=== PATIENT | female | born 1965 | race African-American/Black ===

== ENCOUNTER 2017-05-17 01:50 | Inpatient (IN) | payer OTHER ==
[~2017-05-17] VITALS: Ht 165.1 cm; Wt 66.2 kg
[2017-05-17] VITALS (8 sets, daily range): BP systolic 150–192; BP diastolic 62–103
--- NOTE | ~2017-05-17 | HC ---
[facility] [place] [address] CONSULTATION Name: OMAYRA BUENO Room #: 203-[facility] M.R.#: [id number] Admission: 05/17/17 Attend Phys: Kai Mccarthy MD Discharge: Date of : 61 Report #: [id number] THIS REPORT FOR: //name// CC: Janice Young [facility] physician/PCP Zuhair Allan DATE OF SERVICE: 05/17/2017 CARDIOLOGY CONSULTATION DATE OF SERVICE: 05/17/2017 INDICATION: Chest pains. HISTORY OF PRESENT ILLNESS: This is a 52-year-old female presenting with chest discomfort. She reports a sharp pain across the chest area, comes and goes. It is reproducible with deep inspiration or palpation over the area. The patient has a history of end-stage renal disease, on dialysis 3 times a week. She has a history of noncompliance with medications. The patient was found to have urine tox screen positive for cocaine and opiates. The patient denies any history of fever, chills, nausea or diarrhea. PAST MEDICAL HISTORY: End-stage renal disease on hemodialysis, diabetes mellitus, asthma, hypertension, history of noncompliance with medications. ALLERGIES: None. MEDICATIONS: At home include Flexeril, [place], ibuprofen, insulin. SOCIAL HISTORY: Smokes half a pack of cigarettes per day. Positive drug use. FAMILY HISTORY: Negative for premature CAD. REVIEW OF SYSTEMS: A full 10-point review of systems performed. Only the pertinent positives and negatives are described in the HPI. PHYSICAL EXAMINATION: VITAL SIGNS: Blood pressure is 160/80, heart rate is 75 beats per minute. GENERAL APPEARANCE: A well-developed, well-nourished female in no acute respiratory distress. HEAD AND EYES: Normocephalic. Sclerae are anicteric. ENT: Oral mucosa moist. NECK: Supple, no JVD. LUNGS: Clear to auscultation. No wheezing. CARDIAC: Regular rate and rhythm, S1, S2 positive. [facility] [address] [place] [address] CONSULTATION Name: OMAYRA BUENO Room #: [facility] M.R.#: [id number] Admission: 05/17/17 Attend Phys: Kai Mccarthy MD Discharge: Date of : 61 Report #: [id number] ABDOMEN: Soft. EXTREMITIES: No cyanosis, no edema. ECG reveals sinus rhythm, nonspecific IVCD, left axis deviation. LABORATORY VALUES: Troponin level of 0.06 and 0.07, sodium is 134, creatinine is 11.2, white count is 8.1. IMPRESSION AND PLAN: 1. Chest pain, atypical, the symptoms are reproducible with palpation over chest area or deep inspiration. The troponin levels are negative. I do not believe that this is an ischemic event. However, she does have significant CAD risk factors and should undergo an ischemic evaluation, which can be down as an outpatient. 2. End-stage renal disease, continue with dialysis. 3. Hypertension, resume cardiac meds, as per renal. 4. Tobacco use, complete smoking cessation is recommended. 5. Drug use, observe for withdrawal. 6. Diabetes mellitus, continue with medications. Thank you for allowing me to participate in the care of your patient. <ELECTRONICALLY SIGNED> By: Don Andrews MD 05/18/17 0830 1032 1233 Don Andrews MD /nt
--- NOTE | ~2017-05-17 | EKG ---
[place] [address] [facility] [place] [address] ELECTROCARDIOGRAM REPORT Name: OMAYRA BUENO Room #: 203-P [facility] M.R.#: [id number] Admission: 05/17/17 Attend Phys: Zuhair Allan DO Discharge: Date of : 61 Report #: [id number] THIS REPORT FOR: //name// [facility] ED Test Date: 2017-05-17 Test Time: 01:54:59 Pat Name: OMAYRA BUENO Department: Room: [facility] Gender: F Senior Pastor: NATE : 1965 Requested By: Td Lazo Order Number: [id number] MD: Don Andrews Measurements Intervals [place] Rate: 90 P: 79 [place]: 186 QRS: -68 QRSD: 122 T: 77 QT: 434 QTc: 531 Interpretive Statements Sinus rhythm Nonspecific IVCD with LAD No previous ECG available for comparison Electronically Signed On 05-17-2017 10:43:06 CDT by Don Andrews [email or web address] <ELECTRONICALLY SIGNED> By: Don Andrews MD 05/17/17 1043 0154 0154 MD ANUJ Feliciano
[~2017-05-17 01:50] MED LIST: CYCLOBENZAPRINE5 MG PO; IBUPROFEN 800800 MG PO; LANTUS SOL100 UNIT/1 SQ; NORCO 5-325 TA1 EACH PO; NOVOLOG100 UNIT/1 SUBQ
[2017-05-17 02:48] LABS: ABSOLUTE NEUTROPHILS 6.1 thou/uL (1.4-8.2); BASOPHILS 0.9 % (0.0-2.0); EOSINOPHILS 0.6 % (0.0-3.0); HEMATOCRIT 25.5 % (37.0-47.0); HEMOGLOBIN 8.6 gm/dL (12.0-15.0); LYMPHOCYTES 16.9 % (24.0-44.0); MCHC 33.8 g/dL (28.0-37.0); MCV 91.6 fL (80.0-100.0); MONOCYTES 5.6 % (1.0-8.0); PLATELET COUNT 113 thou/uL (150-400); RBC 2.79 mil/uL (4.20-5.00); RDW 19.7 % (10.5-14.5); WBC 8.1 thou/uL (4.0-11.0)
[2017-05-17 02:53] LABS: MANUAL DIFF NO
[2017-05-17 02:54] LABS: AMP/METHAMP Negative (Negative); BARBITURATES Negative (Negative); BENZODIAZEPINES Negative (Negative); COCAINE POSITIVE (Negative); METHADONE Negative (Negative); OPIATES POSITIVE (Negative); PCP Negative (Negative); THC Negative (Negative)
[2017-05-17 02:58] LABS: CALCIUM 7.6 mg/dL (8.5-10.1); CREATININE 11.2 mg/dL (0.6-1.0)
[2017-05-17 03:00] LABS: APTT 30.4 Seconds (24.5-32.8); INR 1.2; PROTIME 12.3 Seconds (9.3-11.4)
[2017-05-17 03:09] LABS: ALBUMIN 3.6 g/dL (3.4-5.0); MAGNESIUM 1.9 mg/dL (1.8-2.4); TOTAL PROTEIN 7.5 g/dL (6.4-8.2); TROPONIN-I 0.06 ng/mL (<0.04-0.07)
[2017-05-18 03:44] LABS: ABSOLUTE NEUTROPHILS 5.3 thou/uL (1.4-8.2); EOSINOPHILS 3.3 % (0.0-3.0); HEMATOCRIT 26.9 % (37.0-47.0); HEMOGLOBIN 9.2 gm/dL (12.0-15.0); MCH 30.5 pg (26.0-34.0); MCHC 34.2 g/dL (28.0-37.0); MCV 89.2 fL (80.0-100.0); MONOCYTES 7.8 % (1.0-8.0); PLATELET COUNT 159 thou/uL (150-400); POLYS 65.9 % (36.0-66.0); RBC 3.01 mil/uL (4.20-5.00); RDW 19.6 % (10.5-14.5); WBC 8.1 thou/uL (4.0-11.0)
[2017-05-18 03:51] LABS: CALCIUM 7.6 mg/dL (8.5-10.1); MAGNESIUM 1.8 mg/dL (1.8-2.4); POTASSIUM 4.2 mmol/L (3.5-5.1)
[2017-05-18 03:52] LABS: MANUAL DIFF NO
[2017-05-18 03:57] LABS: CREATININE 6.6 mg/dL (0.6-1.0)
[2017-05-18 04:20] VITALS: BP 185/107
[2017-05-18 15:10] LABS: HEP B SURFACE Ab(ANTI-HBS Reactive (())
[2017-05-18 17:06] VITALS: BP 176/93
[2017-05-18 19:09] VITALS: BP 171/92
[2017-05-18 23:42] VITALS: BP 158/70
[2017-05-19 03:36] VITALS: BP 170/66
== END 2017-05-19 07:30 | disposition left against medical advice (07) | DRG 313 ==
LOC: ER 01:50 → EROBS 03:21 → 2N 03:21
PROVIDERS: Emergency Medicine; Internal Medicine
PROC: 5A1D70Z Performance of Urinary Filtration, Intermittent, Less than 6 Hours Per Day (ICD-10-PCS; principal; 2017-05-17)
PROC: 5A1D70Z Performance of Urinary Filtration, Intermittent, Less than 6 Hours Per Day (ICD-10-PCS; 2017-05-18)
DX: R07.89 Other chest pain (principal); N18.6 End stage renal disease; I12.0 Hypertensive chronic kidney disease with stage 5 chronic kidney disease or end stage renal disease; F17.210 Nicotine dependence, cigarettes, uncomplicated; F14.10 Cocaine abuse, uncomplicated; E11.22 Type 2 diabetes mellitus with diabetic chronic kidney disease; J45.909 Unspecified asthma, uncomplicated; E87.5 Hyperkalemia; Z79.899 Other long term (current) drug therapy; Z79.4 Long term (current) use of insulin; Z99.2 Dependence on renal dialysis; Z71.6 Tobacco abuse counseling; Z91.15 Patient's noncompliance with renal dialysis
CPT/HCPCS: 10081; 32100

== ENCOUNTER 2017-09-19 21:01 | Inpatient (IN) | payer OTHER ==
[~2017-09-19] VITALS: Ht 165.1 cm; Wt 61.2 kg
[2017-09-19] VITALS (7 sets, daily range): BP systolic 189–204; BP diastolic 79–93
--- NOTE | ~2017-09-19 | HC ---
[facility] [place] [address] CONSULTATION Name: OMAYRA BUENO Room #: 416-P [facility] IN M.R.#: [id number] Admission: 09/19/17 Attend Phys: Janice Young MD Discharge: 09/24/17 Date of : 61 Report #: [id number] THIS REPORT FOR: //name// CC: FAM unknown Harsh Morales DATE OF SERVICE: 09/20/2017 REASON FOR CONSULTATION: End-stage renal disease requiring hemodialysis. HISTORY OF PRESENT ILLNESS: This is a 52-year-old female who came into the Emergency Room yesterday. She had mental status changes, possibly had a seizure. She has a history of end-stage renal disease and is chronically on dialysis. She has a longstanding diabetes and hypertension. On presentation, she was very hypertensive. She was started on some Cardene for that. She had a CT scan of the head, which showed no acute anatomic changes. She has not had any further seizures. She is seen at this time in the ICU. She is writhing about complaining of pain, complaining of loss of vision, complaining of pleuritic discomfort and is rather restless. She is really not interested . She has a daughter here who states that she has been on dialysis a couple of years. Etiology of her end-stage renal disease is diabetes. She normally dialyzes at the [facility] on . She normally dialyzes on a Thursday, Thursday, Thursday basis. The daughter states that the patient frequently signs off early getting only a couple of hours of dialysis at a time. She dialyzes using a left upper arm AV graft. PAST MEDICAL HISTORY: Longstanding diabetes, also a history of longstanding hypertension. I have spoken with Dr. Young who knows her from previously and states that she does have a history of substance abuse disorder. She has anemia of end-stage renal disease. She is sketchy on details concerning any other sequelae of her diabetes mellitus. MEDICATIONS ON ADMISSION: Undetermined at this time. ALLERGIES: LISTED TO AMOXICILLIN through the Emergency Room. FAMILY HISTORY: Noncontributory. SOCIAL HISTORY: The patient is single, lives in [place], [place]. She is not employed. REVIEW OF SYSTEMS: Again, complains of pain everywhere and really she complains of pain almost wherever I touch her off during exam. She complains of headache, pleuritic chest pain, shortness of breath, nausea. She thinks she lost her vision. She is unaware of fevers, chills or sweats. The majority of her symptoms and history are deemed to be fairly unreliable. [facility] [address] [place] [address] CONSULTATION Name: OMAYRA BUENO Room #: 416-P [facility] IN M.R.#: [id number] Admission: 09/19/17 Attend Phys: Janice Young MD Discharge: 09/24/17 Date of : 61 Report #: [id number] PHYSICAL EXAMINATION: GENERAL: Thin, 52-year-old female, awake and responsive, very anxious. VITAL SIGNS: Blood pressure 160/72, heart rate 79, temperature 98.7, respiratory rate 16, oxygen saturation 99%. HEENT: Shows pupils are 2 mm and reactive. Sclerae are nonicteric. Oral mucosa is dry. NECK: Veins are slightly distended on the left. No adenopathy. Neck is fully supple. CHEST: Clear in all lung [place]. HEART: Has a regular rate and rhythm, no gallop. ABDOMEN: Has a few bowel sounds present. It is soft, nontender at this time. EXTREMITIES: Show no peripheral edema. She has a left upper arm AV graft in place. By palpation, I sensed it is an Artegraft. It has excellent flow. LABORATORY DATA: Sodium 140, potassium 4.7, chloride 98, bicarbonate 27, BUN 57, creatinine 9.7, glucose 120, calcium 8.7, magnesium 2.2. Total bilirubin 1.5, total protein 8.6, albumin 4.0. Troponin 0.04. Undetectable acetaminophen and alcohol. Drug screen pending. White count 6.9, hemoglobin 12.1, hematocrit 36.8, platelets 168,000. Blood gas; pH 7.37, pCO2 of 36.8, pO2 of 246.4. ASSESSMENT: 1. End-stage renal disease. It appears that she did dialyze a couple of days ago on 09/18/2017. She will need dialysis tomorrow, which is her usual dialysis day. I will put in orders for that and we will dialyze her tomorrow. We will put her on a 3 potassium dialysate, but that may need to be altered if potassium goes up overnight. Difficult to know really what her target weight is. We will aim for 1.5 liters of ultrafiltration to help her blood pressure improve. 2. Hypertension, severe. She has been put on some amlodipine. She had some Cardene overnight. Again, we will work for volume removal tomorrow. 3. Longstanding diabetes mellitus. 4. Potential substance abuse. Screen is pending. PLAN: 1. I have written orders for dialysis tomorrow. 2. We will follow along with care of this patient. <ELECTRONICALLY SIGNED> By: Jose Sutherland MD 09/21/17 0722 1140 1726 Jose Sutherland MD /beth
--- NOTE | ~2017-09-19 | EKG ---
[place] [address] [facility] [place] [address] ELECTROCARDIOGRAM REPORT Name: OMAYRA BUENO Room #: 416-P [facility] IN M.R.#: [id number] Admission: 09/19/17 Attend Phys: Janice Young MD Discharge: 09/24/17 Date of : 61 Report #: [id number] THIS REPORT FOR: //name// [facility] ED Test Date: 2017-09-19 Test Time: 21:11:07 Pat Name: OMAYRA BUENO Department: Room: [facility] Gender: F Astronomy Teacher: ELISEO : 1965 Requested By: Td Lazo Order Number: [id number] MD: Jerry Vaca Measurements Intervals [place] Rate: 106 P: 69 [place]: 167 QRS: -17 QRSD: 98 T: 70 QT: 373 QTc: 496 Interpretive Statements Sinus tachycardia Right atrial enlargement Nonspecific ST and T wave abnormality Borderline prolonged QT interval Compared to ECG 06/30/2011 14:29:[address] and T wave abnormality is now present heart rate has increased Electronically Signed On 09-21-2017 7:31:15 DIRECTOR OF AUDIOLOGY by Jerry Vaca [email or web address] <ELECTRONICALLY SIGNED> By: Jerry Vaca MD, [facility] 09/21/17 0731 10 10 Jerry Vaca MD, [facility] /EPI
--- NOTE | ~2017-09-19 | EEG ---
[facility] [place] [address] ELECTROENCEPHALOGRAM Name: OMAYRA BUENO Room #: 416-P [facility] IN M.R.#: [id number] Admission: 09/19/17 Attend Phys: Janice Young MD Discharge: 09/24/17 Date of : 61 Report #: [id number] THIS REPORT FOR: //name// CC: Janice Young [facility] unknown DATE OF SERVICE: 09/21/2017 This patient presented with an episode of seizure. She did not cooperate with the EEG. She continued to move. Background activity in this patient's EEG appears to be about 9 Hz and 30 microvolt. The patient became drowsy that is associated with bilateral slowing and vertex sharp waves. Photic stimulation is unremarkable. IMPRESSION: A lot of artifact is present in this patient's electroencephalogram making the interpretation of this electroencephalogram very difficult. There is some intermixed theta range slowing, which is a nonspecific finding, which can occur with encephalopathy, effect of psychotropic medication and dementia. No active epileptiform activity was noticed during this record. Thank you very much for this referral. <ELECTRONICALLY SIGNED> By: Larry Brunner MD 10/01/17 1146 1708 1718 Larry Brunner MD /nt
[2017-09-19 21:22] LABS: ABSOLUTE NEUTROPHILS 5.5 thou/uL (1.4-8.2); BASOPHILS 0.9 % (0.0-2.0); EOSINOPHILS 1.3 % (0.0-3.0); HEMATOCRIT 42.2 % (37.0-47.0); HEMOGLOBIN 13.8 gm/dL (12.0-15.0); LYMPHOCYTES 25.4 % (24.0-44.0); MCHC 32.6 g/dL (28.0-37.0); MCV 91.8 fL (80.0-100.0); MONOCYTES 11.4 % (1.0-8.0); PLATELET COUNT 174 thou/uL (150-400); RBC 4.59 mil/uL (4.20-5.00); RDW 23.1 % (10.5-14.5); WBC 9.1 thou/uL (4.0-11.0)
[2017-09-19 21:33] LABS: ANION GAP 23 mmol/L (7-16); BUN 50 mg/dL (7-18); CALCIUM 9.7 mg/dL (8.5-10.1); CHLORIDE 96 mmol/L (98-107); CO2 23 mmol/L (21-32); CREATININE 9.5 mg/dL (0.6-1.0); GLUCOSE 165 mg/dL (74-106); POTASSIUM 4.6 mmol/L (3.5-5.1); SODIUM 142 mmol/L (136-145)
[2017-09-19 21:41] LABS: MAGNESIUM 2.2 mg/dL (1.8-2.4); SALICYLATE 2.8 mg/dL (2.8-20.0); SGOT 42 U/L (15-37); SGPT 27 U/L (30-65); TOTAL BILIRUBIN 1.5 mg/dL (<0.1-1.0); TOTAL PROTEIN 8.6 g/dL (6.4-8.2); TROPONIN-I < 0.04 ng/mL (<0.06)
[2017-09-19 21:48] LABS: BE(vivo) -4.2 mmol/L (-2 to +3); HCO3 20.6 mmol/L (22.0-26.0); PCO2 36.8 mmHg (35.0-45.0); PO2 246.4 mmHg (80.0-100.0); pH 7.366 (7.360-7.450); sO2 99.5 % (92.0-98.0)
[2017-09-19 21:53] LABS: ANISOCYTOSIS 3+; LARGE PLATELETS OCCASIONAL; POLYCHROMASIA 1+
[2017-09-20] VITALS (27 sets, daily range): BP systolic 143–187; BP diastolic 58–79
[2017-09-20 05:42] LABS: HEMATOCRIT 36.8 % (37.0-47.0); HEMOGLOBIN 12.1 gm/dL (12.0-15.0); MCH 29.1 pg (26.0-34.0); MCHC 32.8 g/dL (28.0-37.0); MCV 88.8 fL (80.0-100.0); RBC 4.15 mil/uL (4.20-5.00); WBC 6.9 thou/uL (4.0-11.0)
[2017-09-20 05:59] LABS: CALCIUM 8.7 mg/dL (8.5-10.1); CREATININE 9.7 mg/dL (0.6-1.0); POTASSIUM 4.7 mmol/L (3.5-5.1); TROPONIN-I 0.04 ng/mL (<0.06)
[2017-09-21 10:06] LABS: HEMATOCRIT 32.5 % (37.0-47.0); HEMOGLOBIN 10.8 gm/dL (12.0-15.0); MCHC 33.3 g/dL (28.0-37.0); MCV 90.1 fL (80.0-100.0); RBC 3.61 mil/uL (4.20-5.00); RDW 22.9 % (10.5-14.5)
[2017-09-21 10:20] LABS: CALCIUM 8.3 mg/dL (8.5-10.1); CREATININE 6.1 mg/dL (0.6-1.0); POTASSIUM 3.9 mmol/L (3.5-5.1)
[2017-09-21 16:31] VITALS: BP 195/90
[2017-09-21 19:51] LABS: TSH 3.241 uIU/mL (0.358-3.740)
[2017-09-21 20:00] VITALS: BP 152/70
[2017-09-22 04:00] VITALS: BP 157/88
[2017-09-22 08:01] VITALS: BP 221/125
[2017-09-22 08:51] VITALS: BP 169/74
[2017-09-22 10:08] LABS: HEPATITIS B SURFACE AG Negative (Negative)
[2017-09-22 15:10] VITALS: BP 185/91
[2017-09-22 20:00] VITALS: BP 180/82
[2017-09-23 03:54] VITALS: BP 166/81
[2017-09-23 08:46] VITALS: BP 201/103
[2017-09-23 16:10] VITALS: BP 176/69
[2017-09-23 20:00] VITALS: BP 199/74
[2017-09-23 23:53] VITALS: BP 187/78
[2017-09-24 04:00] VITALS: BP 193/99
[2017-09-24 09:26] VITALS: BP 195/95
[2017-09-24] MEDS ORDERED: KEPPRA 500 MG500 M1 PO (12:45)
[2017-09-24] MEDS ORDERED: HYDRALAZINE 5050 MG PO (12:45)
[2017-09-24] MEDS ORDERED: NORVASC10 MG PO (12:45)
[2017-09-24] MEDS ORDERED: ATENOLOL 50MG T50 M1 PO (12:45)
[2017-09-24] MEDS ORDERED: ACETAMINOPHEN325 M1 PO (12:45)
[2017-09-24 13:53] VITALS: BP 195/95
== END 2017-09-24 16:25 | disposition home or self-care (01) | DRG 100 ==
LOC: 4N → ER 21:01 → EDBD 22:22 → 4N 22:22 → ICU 22:22 → 4N 22:22 → EROBS 22:22 → ICU 23:09 → 4N 09-20 10:38 → ICU 09-21 05:25 → 4N 09-21 05:25 → ENTRNSPT 09-24 16:24 → 4N 09-24 16:25 → EDBD 09-24 16:25
PROVIDERS: Emergency Medicine; Internal Medicine Nephrology; Nurse Practitioner; Psychiatry & Neurology Neuromuscular Medicine
PROC: 5A1D70Z Performance of Urinary Filtration, Intermittent, Less than 6 Hours Per Day (ICD-10-PCS; principal; 2017-09-21)
PROC: 5A1D70Z Performance of Urinary Filtration, Intermittent, Less than 6 Hours Per Day (ICD-10-PCS; 2017-09-23)
DX: G40.409 Other generalized epilepsy and epileptic syndromes, not intractable, without status epilepticus (principal); N18.6 End stage renal disease; G92 Toxic encephalopathy; I10 Essential (primary) hypertension; E11.22 Type 2 diabetes mellitus with diabetic chronic kidney disease; F15.10 Other stimulant abuse, uncomplicated; F17.210 Nicotine dependence, cigarettes, uncomplicated; G89.29 Other chronic pain; I16.0 Hypertensive urgency; Z91.19 Patient's noncompliance with other medical treatment and regimen; Z88.1 Allergy status to other antibiotic agents; Z99.2 Dependence on renal dialysis; Z88.0 Allergy status to penicillin; Z28.21 Immunization not carried out because of patient refusal
CPT/HCPCS: 10078; 10790; 32100

== ENCOUNTER 2017-09-24 22:40 | Emergency (ER) | payer OTHER ==
[~2017-09-24] VITALS: Ht 165.1 cm; Wt 47.2 kg
--- NOTE | ~2017-09-24 | EKG ---
[place] [address] [place] [address] ELECTROCARDIOGRAM REPORT Name: OMAYRA BUENO [id number] Admission: 09/24/17 Attend Phys: Discharge: 09/25/17 Date of : 61 Report #: [id number] THIS REPORT FOR: //name// [facility] ED Test Date: 2017-09-24 Test Time: 22:52:05 Pat Name: OMAYRA BUENO Department: Room: Gender: F Horse Race Timer: YURIY : 1965 Requested By: Arcelia Smith Order Number: [id number] MD: Jerry Vaca Measurements Intervals [place] Rate: 69 P: 79 [place]: 165 QRS: 4 QRSD: 95 T: 99 QT: 451 QTc: 484 Interpretive Statements Sinus rhythm LAE, consider biatrial enlargement Low voltage, extremity leads Probable anteroseptal infarct, old Nonspecific ST and T wave abnormality Compared to ECG 09/19/2017 21:11:07 Sinus tachycardia no longer present Electronically Signed On 09-25-2017 7:49:54 DATA EXAMINATION CLERK by Jerry Vaca [email or web address] <ELECTRONICALLY SIGNED> By: Jerry Vaca MD, [facility] 09/25/17 0749 2252 2252 Jerry Vaca MD, [facility] /EPI
[~2017-09-24 22:40] MED LIST changes: +ACETAMINOPHEN325 M1 PO; +ATENOLOL 50MG T50 M1 PO; +HYDRALAZINE 5050 MG PO; +KEPPRA 500 MG500 M1 PO; +NORVASC10 MG PO
[2017-09-24 23:02] LABS: ABSOLUTE NEUTROPHILS 4.5 thou/uL (1.4-8.2); EOSINOPHILS 3.4 % (0.0-3.0); HEMATOCRIT 35.3 % (37.0-47.0); HEMOGLOBIN 11.5 gm/dL (12.0-15.0); LYMPHOCYTES 19.9 % (24.0-44.0); MCH 29.7 pg (26.0-34.0); MCHC 32.6 g/dL (28.0-37.0); MCV 91.1 fL (80.0-100.0); MONOCYTES 6.1 % (1.0-8.0); PLATELET COUNT 119 thou/uL (150-400); POLYS 69.6 % (36.0-66.0); RBC 3.87 mil/uL (4.20-5.00); RDW 23.8 % (10.5-14.5); WBC 6.5 thou/uL (4.0-11.0)
[2017-09-24 23:07] LABS: ANION GAP 10 mmol/L (7-16); BUN 29 mg/dL (7-18); CALCIUM 8.7 mg/dL (8.5-10.1); CHLORIDE 100 mmol/L (98-107); CO2 28 mmol/L (21-32); CREATININE 7.1 mg/dL (0.6-1.0); GLUCOSE 127 mg/dL (74-106); POTASSIUM 4.1 mmol/L (3.5-5.1); SODIUM 138 mmol/L (136-145)
[2017-09-24 23:17] LABS: TROPONIN-I < 0.04 ng/mL (<0.06)
[2017-09-24 23:30] LABS: ANISOCYTOSIS 3+; POLYCHROMASIA 2+
[2017-09-24 23:31] LABS: SCHISTOCYTES FEW
[2017-09-25 00:10] VITALS: BP 175/84
== END 2017-09-25 00:22 | disposition home or self-care (01) ==
LOC: ER → EDBD 22:40 → ER 22:40
PROVIDERS: Emergency Medicine
DX: R07.9 Chest pain, unspecified (principal); I16.0 Hypertensive urgency; I12.0 Hypertensive chronic kidney disease with stage 5 chronic kidney disease or end stage renal disease; N18.6 End stage renal disease; Z99.2 Dependence on renal dialysis; F17.210 Nicotine dependence, cigarettes, uncomplicated

== ENCOUNTER 2017-09-26 06:38 | Emergency (ER) | payer OTHER ==
[~2017-09-26] VITALS: Ht 162.6 cm; Wt 68.0 kg
--- NOTE | ~2017-09-26 | EKG ---
[place] [address] [place] [address] ELECTROCARDIOGRAM REPORT Name: OMAYRA BUENO [id number] Admission: 09/26/17 Attend Phys: Discharge: 09/26/17 Date of : 61 Report #: [id number] THIS REPORT FOR: //name// [facility] ED Test Date: 2017-09-26 Test Time: 07:25:08 Pat Name: OMAYRA BUENO Department: Room: Gender: F Bi Developer: oly : 1965 Requested By: Vivien Forrest Order Number: [id number] MD: Jerry Vaca Measurements Intervals [place] Rate: 73 P: 85 [place]: 168 QRS: 23 QRSD: 101 T: 119 QT: 450 QTc: 496 Interpretive Statements Sinus rhythm Cannot rule out septal infarct, age indeterminate Nonspecific ST and T wave abnormality Compared to ECG 05/17/2017 01:54:59 Nonspecific change in the ST and T-wave segments Electronically Signed On 09-27-2017 15:27:15 OPERATIONS SECTION MANAGER by Jerry Vaca [email or web address] <ELECTRONICALLY SIGNED> By: Jerry Vaca MD, [facility] 09/27/17 1527 4 4 Jerry Vaca MD, [facility] /EPI
[2017-09-26 07:28] LABS: ABSOLUTE NEUTROPHILS 5.9 thou/uL (1.4-8.2); BASOPHILS 1.2 % (0.0-2.0); HEMATOCRIT 31.2 % (37.0-47.0); HEMOGLOBIN 10.2 gm/dL (12.0-15.0); LYMPHOCYTES 15.1 % (24.0-44.0); MCH 29.9 pg (26.0-34.0); MCHC 32.7 g/dL (28.0-37.0); MCV 91.3 fL (80.0-100.0); MONOCYTES 6.1 % (1.0-8.0); POLYS 75.6 % (36.0-66.0); RBC 3.41 mil/uL (4.20-5.00); RDW 23.6 % (10.5-14.5); WBC 7.8 thou/uL (4.0-11.0)
[2017-09-26 07:36] LABS: CALCIUM 8.4 mg/dL (8.5-10.1)
[2017-09-26 08:31] LABS: ANISOCYTOSIS 3+; POIKILOCYTOSIS 1+; POLYCHROMASIA 1+
[2017-09-26 08:32] LABS: HYPOCHROMASIA SLIGHT; PLATELET COUNT 94 thou/uL (150-400)
[2017-09-26 09:31] VITALS: BP 188/92
== END 2017-09-26 09:30 | disposition home or self-care (01) ==
LOC: ER 06:38
PROVIDERS: Emergency Medicine
DX: R06.00 Dyspnea, unspecified (principal); E11.22 Type 2 diabetes mellitus with diabetic chronic kidney disease; I12.0 Hypertensive chronic kidney disease with stage 5 chronic kidney disease or end stage renal disease; N18.6 End stage renal disease; F17.210 Nicotine dependence, cigarettes, uncomplicated; Z79.4 Long term (current) use of insulin; Z91.15 Patient's noncompliance with renal dialysis

== ENCOUNTER 2017-10-13 08:17 | Inpatient (IN) | payer OTHER ==
[~2017-10-13] VITALS: Ht 165.1 cm; Wt 97.5 kg
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
--- NOTE | ~2017-10-13 | HC ---
[facility] [place] [address] CONSULTATION Name: OMAYRA BUENO Room #: 443-P [facility] IN M.R.#: [id number] Admission: 10/13/17 Attend Phys: Harsh Nielsen MD Discharge: 10/16/17 Date of : 61 Report #: [id number] THIS REPORT FOR: //name// CC: KELLY physician/PCP Harsh Nielsen DATE OF SERVICE: 10/13/2017 HISTORY OF PRESENT ILLNESS: This is a 52-year-old female patient who is unable to provide any history. I had seen this patient in the past and I reviewed those notes. I talked to the nurses. I talked to the Emergency Room physicians and the admitting nurse practitioner. This patient was admitted with seizures. She was found unresponsive and possibly had a seizure. She was supposed to be on Keppra from last admission, but is not sure if she took it or she did not take it. Nurses tell me she was going to sign off AMA because she did not want to stay here, but she had another seizure and could not sign out AMA. She did receive some Ativan for the seizure and she received Keppra. She is on dialysis, so she got a single dose of Keppra, which should be adequate for her. REVIEW OF SYSTEMS: Very extensive from the record. She is unable to provide any history at all. She is a dialysis patient, but she is noncompliant, last time her liver was abnormal too. Her potassium is a very high, her creatinine is 13. That is her relevant 14-point review of system. She has very high history of medical noncompliance and she never provide any history and basically is very argumentative when I saw her last time and wants the narcotics. PAST MEDICAL HISTORY: Positive for seizure, but it is not sure whether they were seizure, but since she was predisposed to seizure, I had given her Keppra. FAMILY HISTORY: Unavailable, but last time she has told me there was no family member who has congenital epilepsy. SOCIAL HISTORY: She apparently has a boyfriend and who he is the one who found her, but I cannot reach him. She smokes. PHYSICAL EXAMINATION: Her examination is very limited. She is basically sedated and unresponsive at the moment. She is not actively seizing and she does not have any reflexes. Pupils are small. Cardiac examination is unremarkable. Respiratory examination appeared to be stable. Vital signs indicate a blood pressure of 176/82, respirations 16, and pulse is 68. LABS: Indicate a white count of 10.7 and potassium is high and last time, her bilirubin was also high and so was alkaline phosphatase . IMPRESSION: 1. Breakthrough seizure, most likely because of noncompliance. [facility] [address] [place] [address] CONSULTATION Name: OMAYRA BUENO Room #: 443-P [facility] IN M.R.#: [id number] Admission: 10/13/17 Attend Phys: Harsh Nielsen MD Discharge: 10/16/17 Date of : 61 Report #: [id number] 2. Virtually no history is available in this patient and because of that, we will go ahead and do a noncontrast CT of the head to make sure there is no pathology there. 3. We will do an EEG to look for any seizure activity. 4. She already got a dose of Keppra, which is appropriate for the dialysis patient, but we might resume a regular dose tomorrow depending upon when the dialysis is going to be and if the patient leaves AMA or not. Thank you very much for this referral. <ELECTRONICALLY SIGNED> By: Larry Brunner MD 10/17/17 1549 1815 2048 Larry Brunner MD /nt
--- NOTE | ~2017-10-13 | EEG ---
[facility] [place] [address] ELECTROENCEPHALOGRAM Name: OMAYRA BUENO Room #: 443-P [facility] IN M.R.#: [id number] Admission: 10/13/17 Attend Phys: Harsh Nielsen MD Discharge: 10/16/17 Date of : 61 Report #: [id number] THIS REPORT FOR: //name// CC: [facility] physician/PCP Harsh Nielsen This patient is being admitted with seizure. EEG was done by placing the electrodes by standard 10-20 system of electrode placement. Both referential and sequential montages were used for recording. Background activity in this patient's EEG is about 8 Hz and 30 microvolt. The patient appeared to be drowsy and that is associated with bilateral slowing and vertex sharp waves. Photic stimulation was unremarkable. Throughout the record, no active epileptiform activity was noticed. IMPRESSION: This patient's electroencephalogram is intermixed with theta range slowing on both sides. That is a nonspecific finding, which can occur with encephalopathy, effect of psychotropic medication, dementia, etc. No active epileptiform activity was noticed during this record. Thank you very much for this referral. <ELECTRONICALLY SIGNED> By: Larry Brunner MD 10/17/17 1552 1104 1137 Larry Brunner MD /nt
--- NOTE | ~2017-10-13 | EKG ---
[address] [place] [address] ELECTROCARDIOGRAM REPORT Name: OMAYRA BUENO Room #: 443-P [facility] IN M.R.#: [id number] Admission: 10/13/17 Attend Phys: Harsh Nielsen MD Discharge: Date of : 61 Report #: [id number] THIS REPORT FOR: //name// [facility] ED Test Date: 2017-10-13 Test Time: 11:43:56 Pat Name: OMAYRA BUENO Department: Room: 44 Gender: F Fence Installer Foreman: KKMICHI : 1965 Requested By: Vivien Forrest Order Number: [id number] MD: Jerry Vaca Measurements Intervals [place] Rate: 60 P: 51 [place]: 173 QRS: -14 QRSD: 75 T: 177 QT: 543 QTc: 543 Interpretive Statements Sinus rhythm Low voltage, extremity leads Anteroseptal infarct, old Nonspecific ST and T wave abnormality Prolonged QT interval Baseline wander in lead(s) III,aVL,V3 Compared to ECG 09/26/2017 07:25:08 No significant change was found Electronically Signed On 10-14-2017 7:55:25 CANVAS GOODS MAKER by Jerry Vaca [email or web address] <ELECTRONICALLY SIGNED> By: Jerry Vaca MD, FAC 10/14/17 0755 1143 1143 Jerry Vaca MD, FAC /EPI
[2017-10-13 08:19] VITALS: BP 159/73
[2017-10-13 08:52] LABS: ABSOLUTE NEUTROPHILS 8.3 thou/uL (1.4-8.2); BASOPHILS 0.6 % (0.0-2.0); EOSINOPHILS 0.7 % (0.0-3.0); HEMATOCRIT 35.2 % (37.0-47.0); HEMOGLOBIN 11.5 gm/dL (12.0-15.0); LYMPHOCYTES 15.6 % (24.0-44.0); MCH 30.4 pg (26.0-34.0); MCHC 32.8 g/dL (28.0-37.0); MCV 92.8 fL (80.0-100.0); MONOCYTES 5.9 % (1.0-8.0); PLATELET COUNT 130 thou/uL (150-400); POLYS 77.2 % (36.0-66.0); RBC 3.79 mil/uL (4.20-5.00); WBC 10.7 thou/uL (4.0-11.0)
[2017-10-13 09:00] LABS: CALCIUM 7.6 mg/dL (8.5-10.1)
[2017-10-13 09:02] LABS: POTASSIUM 6.1 mmol/L (3.5-5.1)
[2017-10-13 11:22] VITALS: BP 158/86
[2017-10-13 17:27] VITALS: BP 176/82
[2017-10-13 18:00] VITALS: BP 157/78
[2017-10-13 18:43] LABS: ALBUMIN 3.2 g/dL (3.4-5.0); CALCIUM 7.2 mg/dL (8.5-10.1); CREATININE 13.6 mg/dL (0.6-1.0); POTASSIUM 5.7 mmol/L (3.5-5.1); TOTAL BILIRUBIN 0.8 mg/dL (<0.1-1.0); TOTAL PROTEIN 7.1 g/dL (6.4-8.2)
[2017-10-13 19:43] VITALS: BP 161/74
[2017-10-14 01:10] LABS: GLYCOHEMOGLOBIN (HGB A1C) 4.9 % (4.8-5.6)
[2017-10-14 07:53] LABS: ABSOLUTE NEUTROPHILS 7.8 thou/uL (1.4-8.2); BASOPHILS 0.7 % (0.0-2.0); EOSINOPHILS 2.2 % (0.0-3.0); HEMATOCRIT 25.7 % (37.0-47.0); LYMPHOCYTES 8.3 % (24.0-44.0); MCH 30.1 pg (26.0-34.0); MCV 91.4 fL (80.0-100.0); MONOCYTES 7.2 % (1.0-8.0); PLATELET COUNT 130 thou/uL (150-400); POLYS 81.6 % (36.0-66.0); RBC 2.81 mil/uL (4.20-5.00); RDW 22.6 % (10.5-14.5); WBC 9.5 thou/uL (4.0-11.0)
[2017-10-14 07:54] LABS: HEMOGLOBIN 8.5 gm/dL (12.0-15.0)
[2017-10-14 08:00] VITALS: BP 160/68
[2017-10-14 08:09] LABS: ALBUMIN 2.8 g/dL (3.4-5.0); MAGNESIUM 1.9 mg/dL (1.8-2.4); PHOSPHORUS 7.3 mg/dL (2.5-4.9)
[2017-10-14 08:15] LABS: CALCIUM 5.9 mg/dL (8.5-10.1); CREATININE 10.6 mg/dL (0.6-1.0); POTASSIUM 4.6 mmol/L (3.5-5.1)
[2017-10-14 16:00] VITALS: BP 177/89
[2017-10-14 20:42] VITALS: BP 175/65
[2017-10-15 04:16] VITALS: BP 183/76
[2017-10-15 08:36] VITALS: BP 190/81
[2017-10-15 15:23] VITALS: BP 195/83
[2017-10-15 19:05] VITALS: BP 192/94
[2017-10-16 04:21] VITALS: BP 208/104
[2017-10-16] MEDS ORDERED: KEPPRA 500 MG500 M1 PO ×2 (11:42→13:05)
[2017-10-16] MEDS ORDERED: KEPPRA 500 MG500 MG PO ×2 (11:42→13:05)
[2017-10-16] MEDS ORDERED: COLACE100 MG PO (11:42)
[2017-10-16] MEDS ORDERED: HYDRALAZINE 2525 MG PO (12:14)
[2017-10-16 12:30] VITALS: BP 161/64
[2017-10-16 12:51] VITALS: BP 167/61
== END 2017-10-16 13:34 | disposition home or self-care (01) | DRG 100 ==
LOC: ER 08:17 → EROBS 10:30 → 4S 10:30 → ENTRNSPT 10-16 13:29 → EDTRNSPTSTS 10-16 13:32 → 4S 10-16 13:34
PROVIDERS: Emergency Medicine; Internal Medicine; Nurse Practitioner; Psychiatry & Neurology Neuromuscular Medicine
PROC: 5A1D70Z Performance of Urinary Filtration, Intermittent, Less than 6 Hours Per Day (ICD-10-PCS; 2017-10-14)
PROC: 5A1D70Z Performance of Urinary Filtration, Intermittent, Less than 6 Hours Per Day (ICD-10-PCS; principal; 2017-10-16)
DX: G40.909 Epilepsy, unspecified, not intractable, without status epilepticus (principal); N18.6 End stage renal disease; I12.0 Hypertensive chronic kidney disease with stage 5 chronic kidney disease or end stage renal disease; E11.22 Type 2 diabetes mellitus with diabetic chronic kidney disease; E87.5 Hyperkalemia; F17.210 Nicotine dependence, cigarettes, uncomplicated; E11.65 Type 2 diabetes mellitus with hyperglycemia; G89.29 Other chronic pain; M54.9 Dorsalgia, unspecified; D69.6 Thrombocytopenia, unspecified; F14.10 Cocaine abuse, uncomplicated; Z79.899 Other long term (current) drug therapy; Z91.14 Patient's other noncompliance with medication regimen; Z90.49 Acquired absence of other specified parts of digestive tract
CPT/HCPCS: 10100; 32100